=== PATIENT | male | born 1935 | race Caucasian/White ===

== ENCOUNTER 2018-06-15 13:26 | Emergency (ER) | payer MEDICARE ==
[2018-06-15] MEDS ORDERED: predniSONE 20 MG TAB ONE (15:26)
[2018-06-15 15:31] LABS: #Basophils 0.1 thou/uL (0.0-0.2); #Eosinphils 0.2 thou/uL (0.0-0.7); #Lymphocytes 2.1 thou/uL (1.20-3.40); #Monocytes 0.7 thou/uL (0.11-0.59); #Neutrophils 8.9 thou/uL (1.40-6.50); %Basophils 0.6 % (0.0-1.0); %Eosinophils 1.7 % (0.0-10.0); %Lymphocytes 17.2 % (21.0-51.0); %Neutrophils 74.5 % (42.0-75.0); Hemoglobin 13.8 g/dL (14.0-18.0); Mean Corpuscular HGB CONC 32.2 g/dL (32.0-36.0); Mean Corpuscular Hemoglobin 31.2 pg (27.0-31.0); Mean Corpuscular Volume 96.9 fL (78.0-98.0); Mean Platelet Volume 7.3 fL (7.4-10.4); Platelet Count 307 thou/uL (130-400); RBC Distribution Width 11.7 % (11.5-14.5); Red Blood Cell (RBC) Count 4.42 mill/uL (4.70-6.10)
[2018-06-15 15:38] LABS: INR-International Normal Ratio 2.2; PTT 36.6 SEC (22.9-36.1); Prothrombin Time 24.8 SEC (12.0-14.7)
[2018-06-15 15:47] LABS: ALT (SGPT) 16 U/L (8-55); AST (SGOT) 18 U/L (5-34); Albumin 4.5 g/dL (3.4-4.8); Alkaline Phosphatase 72 U/L (40-150); Anion Gap 13 mmol/L (10-20); BUN (Urea Nitrogen) 20 mg/dL (8.4-25.7); Bilirubin, Total 0.7 mg/dL (0.2-1.2); Calc. Creatinine Clearance 0 mL/min (70-130); Calcium 10.5 mg/dL (7.8-10.44); Carbon Dioxide 29 mmol/L (23-31); Chloride 99 mmol/L (98-107); Estimated GFR-MDRD 69; Globulin 3.3 g/dL (2.4-3.5); Glucose 125 mg/dL (83-110); Potassium 4.7 mmol/L (3.5-5.1); Protein, Total 7.8 g/dL (5.8-8.1); Sodium 136 mmol/L (136-145)
--- NOTE | 2018-06-15 16:05 | RAD ---
RADIOGRAPH CHEST 2 VIEWS: HISTORY: 82-year-old male with cough and dyspnea. FINDINGS: There is no air space density, pulmonary edema, pleural effusion, pneumothorax, or cardiomegaly. IMPRESSION: No acute cardiopulmonary findings. [facility] POS: SKY
[2018-06-15] MEDS ORDERED: Lidocaine 1% (PF) 30 ML VIAL ONE (17:02)
== END 2018-06-15 16:30 | disposition home or self-care (01) ==
LOC: ERS 13:26
DX: J44.1 Chronic obstructive pulmonary disease with (acute) exacerbation (principal); I25.10 Atherosclerotic heart disease of native coronary artery without angina pectoris; E78.5 Hyperlipidemia, unspecified; E78.1 Pure hyperglyceridemia; I10 Essential (primary) hypertension; Z79.899 Other long term (current) drug therapy; Z79.01 Long term (current) use of anticoagulants; Z79.82 Long term (current) use of aspirin
CPT/HCPCS: 36415; 71046; 80053; 85025; 85610; 85730; J2001; J7620

== ENCOUNTER 2019-04-23 13:03 | Emergency (ER) | payer MEDICARE ==
[2019-04-23 14:06] LABS: #Basophils 0.1 thou/uL (0.0-0.2); #Eosinphils 0.3 thou/uL (0.0-0.7); #Monocytes 0.7 thou/uL (0.11-0.59); %Basophils 0.7 % (0.0-1.0); %Eosinophils 2.7 % (0.0-10.0); %Lymphocytes 29.7 % (21.0-51.0); %Monocytes 7.2 % (0.0-10.0); %Neutrophils 59.7 % (42.0-75.0); Hemoglobin 13.6 g/dL (14.0-18.0); Mean Corpuscular HGB CONC 33.7 g/dL (32.0-36.0); Mean Corpuscular Hemoglobin 31.8 pg (27.0-31.0); Mean Corpuscular Volume 94.6 fL (78.0-98.0); Mean Platelet Volume 7.5 fL (7.4-10.4); Platelet Count 278 thou/uL (130-400); RBC Distribution Width 11.5 % (11.5-14.5); Red Blood Cell (RBC) Count 4.27 mill/uL (4.70-6.10)
[2019-04-23 14:37] LABS: ALT (SGPT) 14 U/L (8-55); AST (SGOT) 19 U/L (5-34); Albumin 4.4 g/dL (3.4-4.8); Alkaline Phosphatase 80 U/L (40-110); Anion Gap 10 mmol/L (10-20); BUN (Urea Nitrogen) 19 mg/dL (8.4-25.7); Bilirubin, Total 0.6 mg/dL (0.2-1.2); Calc. Creatinine Clearance 0 mL/min (70-130); Calcium 10.3 mg/dL (7.8-10.44); Carbon Dioxide 30 mmol/L (23-31); Chloride 99 mmol/L (98-107); Estimated GFR-MDRD 65; Globulin 3.2 g/dL (2.4-3.5); Glucose 118 mg/dL (83-110); Potassium 4.3 mmol/L (3.5-5.1); Protein, Total 7.6 g/dL (5.8-8.1); Sodium 135 mmol/L (136-145)
[2019-04-23 15:04] LABS: Bacteria/HPF None Seen HPF (None Seen); Bilirubin Negative (Negative); Blood, Urine 3+ (Negative); Clarity Hazy (Clear); Glucose, Urine (Dipstick) Normal (Negative); Leukocyte 500 Leu/uL (Negative); Nitrite Negative (Negative); Protein, Urine (Dipstick) 50 mg/dL (Neg-Trace); RBC/HPF Greater than 50 HPF (0-3); Squamous Epithelial None Seen HPF (0-3); Urobilinogen Normal mg/dL (Less than 2); WBC/HPF 0-3 HPF (0-3)
[2019-04-23 15:13] LABS: INR-International Normal Ratio 2.3; PTT 37.1 SEC (22.9-36.1)
--- NOTE | 2019-04-23 17:54 | CT ---
Exam: Abdomen CT without contrast Pelvic CT without contrast HISTORY: Hematuria. Pain. COMPARISON: 06/25/2016 FINDINGS: Abdomen CT: Lung bases:Linear opacities in lung bases likely represent areas of scar and/or atelectasis Heart size: Upper normal heart size. No significant pericardial fluid. Aorta: Atherosclerosis of a nonaneurysmal aorta. Solid organs: Limited evaluation of the solid organs by the lack of intravenous contrast administrati on. Grossly no solid organ abnormality. Lymph nodes: No gastrohepatic, retrocrural or periportal lymphadenopathy Gallbladder: Multiple small stones are noted in the dependent portion the gallbladder. No evidence of cholecystitis. Small outpouching of the gallbladder fundus. Mesentery: No mass, lymphadenopathy, free air or free fluid Kidneys: Bilaterally no evidence of hydronephrosis or significant perinephric fat stranding. There ar e 2 separate punctate nonobstructing 2 mm calculi in the right renal pelvis. Bilateral ureters have a normal caliber. No hydroureter, periureteral fat stranding or ureterolithiasis. 2.9 cm complex cyst emanating from the upper pole the right kidney. Hyperdensity in the upper pole left kidney, likely representing a hemorrhagic or complex/proteinaceous cyst measuring 0.9 cm. There is a hypodensity terry nating from the midpole of the left kidney with attenuation coefficient of 16 Hounsfield units compatible with a 2.1 cm cyst. Alimentary canal: Limited evaluation the lack of oral contrast. There is evidence of previous surgery with small bowel anastomosis. There is dilatation of the level of anastomosis which is nonspecific. Definite high-grade bowel obstruction is not appreciated as there is air and fecal mater ial in the remainder of the small bowel. There is scattered fecal material in a nondistended, nondilated colon. Occasional diverticulum. No diverticulitis. Mucosal thickening of the proximal sigm oid colon is nonspecific. Nonemergent colonoscopy is recommended. Normal caliber appendix. CT PELVIS: No mass, adenopathy, free air or free fluid. Unremarkable prostate gland. Urinary bladder: No mucosal abnormality. No bladder calculi. Osseous structures: No lytic or blastic lesions Aorta: Mild focal prominence of the infrarenal abdominal aorta measuring 2.9 x 2.6 cm. IMPRESSION: 1. Nonobstructing calculi in the right renal pelvis. No evidence of obstructive uropathy 2. Anastomosis of small bowel loops in the left hemiabdomen. Findings are similar to the previous exa mination. 2. Cholelithiasis, without evidence of cholecystitis. 4. Bilateral renal cortical cysts as described above. Transcribed Date/Time: 04/23/2019 6:02 PM
--- NOTE | 2019-04-25 13:58 | EKG ---
Test Reason : Blood Pressure : / mmHG Vent. Rate : 056 BPM Atrial Rate : 056 BPM P-R Int : 148 ms QRS Dur : 130 ms QT Int : 470 ms P-R-T Axes : -02 -33 082 degrees QTc Int : 453 ms Sinus bradycardia Left axis deviation Right bundle branch block Lateral infarct , age undetermined Inferior infarct , age undetermined Abnormal ECG No change from 06/26/2016 Confirmed by PAULA MADISON DO ([id number]), copy editor JESSICA CAGE ([id number] on 04/25/2019 1:58:06 PM Referred By: Confirmed By:PAULA MADISON DO
== END 2019-04-23 18:54 | disposition home or self-care (01) ==
LOC: ERS 13:03
DX: N30.01 Acute cystitis with hematuria (principal); I25.10 Atherosclerotic heart disease of native coronary artery without angina pectoris; I25.2 Old myocardial infarction; E11.9 Type 2 diabetes mellitus without complications; E78.2 Mixed hyperlipidemia; I10 Essential (primary) hypertension; J44.9 Chronic obstructive pulmonary disease, unspecified; Z87.891 Personal history of nicotine dependence; Z79.899 Other long term (current) drug therapy; Z79.82 Long term (current) use of aspirin; Z86.711 Personal history of pulmonary embolism; Z79.01 Long term (current) use of anticoagulants; Z79.51 Long term (current) use of inhaled steroids
CPT/HCPCS: 36415; 74176; 80053; 81003; 81015; 85025; 85610; 85730; 87077; 87086; 87186; 93005

== ENCOUNTER 2019-04-25 16:55 | Emergency (ER) | payer MEDICARE ==
[2019-04-25 18:00] LABS: #Eosinphils 0.3 thou/uL (0.0-0.7); #Lymphocytes 2.6 thou/uL (1.20-3.40); #Monocytes 0.8 thou/uL (0.11-0.59); #Neutrophils 5.7 thou/uL (1.40-6.50); %Basophils 0.5 % (0.0-1.0); %Eosinophils 2.8 % (0.0-10.0); %Lymphocytes 27.3 % (21.0-51.0); %Monocytes 8.7 % (0.0-10.0); %Neutrophils 60.8 % (42.0-75.0); Hemoglobin 13.4 g/dL (14.0-18.0); Mean Corpuscular HGB CONC 33.1 g/dL (32.0-36.0); Mean Corpuscular Hemoglobin 30.9 pg (27.0-31.0); Mean Corpuscular Volume 93.4 fL (78.0-98.0); Platelet Count 281 thou/uL (130-400); RBC Distribution Width 11.6 % (11.5-14.5); Red Blood Cell (RBC) Count 4.33 mill/uL (4.70-6.10); White Blood Cell (WBC) Count 9.4 thou/uL (4.8-10.8)
[2019-04-25 18:15] LABS: Bacteria/HPF None Seen HPF (None Seen); Bilirubin Negative (Negative); Blood, Urine Negative (Negative); Clarity Clear (Clear); Glucose, Urine (Dipstick) Normal (Negative); Leukocyte 75 Leu/uL (Negative); Nitrite Negative (Negative); Protein, Urine (Dipstick) 50 mg/dL (Neg-Trace); Squamous Epithelial 0-3 HPF (0-3); Urobilinogen Normal mg/dL (Less than 2)
[2019-04-25 18:24] LABS: ALT (SGPT) 12 U/L (8-55); AST (SGOT) 18 U/L (5-34); Albumin 4.3 g/dL (3.4-4.8); Alkaline Phosphatase 78 U/L (40-110); Anion Gap 15 mmol/L (10-20); BUN (Urea Nitrogen) 24 mg/dL (8.4-25.7); Bilirubin, Total 0.5 mg/dL (0.2-1.2); Calc. Creatinine Clearance 0 mL/min (70-130); Carbon Dioxide 28 mmol/L (23-31); Chloride 100 mmol/L (98-107); Estimated GFR-MDRD 65; Globulin 3.8 g/dL (2.4-3.5); Glucose 102 mg/dL (83-110); Lipase 64 U/L (8-78); Potassium 4.1 mmol/L (3.5-5.1); Protein, Total 8.1 g/dL (5.8-8.1); Sodium 139 mmol/L (136-145)
--- NOTE | 2019-04-25 18:26 | ULT ---
ULTRASOUND RETROPERITONEUM COMPLETE: (RENAL) DATE: 04/25/2019 HISTORY: Hematuria and flank pain FINDINGS: The right kidney measures 12.5 x 5.5 x 5.5 cm. The left kidney measures 12.5 x 5.5 x 5 cm. Both kidneys have normal parenchymal echogenicity. There is no hydronephrosis. Round 3 cm exophytic cyst protruding from upper pole cortex of right kidney. Left kidney partially obscured by shadowing from bowel gas. Cursory images of the urinary bladder demonstrate no gross abnormality. IMPRESSION: 1) 3 cm exophytic right renal upper pole cyst. 2) The other left renal lesions demonstrated on CT 2 days ago, are not visualized on this ultrasound. 3) no hydronephrosis
== END 2019-04-25 18:50 | disposition home or self-care (01) ==
LOC: ERS 16:55
DX: N20.0 Calculus of kidney (principal); I25.2 Old myocardial infarction; E11.9 Type 2 diabetes mellitus without complications; I10 Essential (primary) hypertension; I25.10 Atherosclerotic heart disease of native coronary artery without angina pectoris; E78.5 Hyperlipidemia, unspecified; J44.9 Chronic obstructive pulmonary disease, unspecified; Z86.711 Personal history of pulmonary embolism; Z87.891 Personal history of nicotine dependence; Z79.899 Other long term (current) drug therapy; Z79.01 Long term (current) use of anticoagulants; Z79.82 Long term (current) use of aspirin
CPT/HCPCS: 36415; 76770; 80053; 81003; 81015; 83690; 85025

== ENCOUNTER 2023-03-05 00:59 | Observation (INO) | payer MEDICARE ==
[2023-03-05 01:45] LABS: #Basophils 0.1 thou/uL (0.0-0.2); #Eosinphils 0.3 thou/uL (0.0-0.7); #Monocytes 0.9 thou/uL (0.11-0.59); #Neutrophils 5.9 thou/uL (1.40-6.50); %Basophils 0.5 % (0.0-1.0); %Eosinophils 2.9 % (0.0-10.0); %Lymphocytes 27.6 % (21.0-51.0); %Monocytes 8.7 % (0.0-10.0); %Neutrophils 59.9 % (42.0-75.0); Hematocrit 36.6 % (42.0-52.0); Mean Corpuscular HGB CONC 32.8 g/dL (32.0-36.0); Mean Corpuscular Hemoglobin 32.2 pg (27.0-31.0); Mean Corpuscular Volume 98.1 fl (78.0-98.0); Mean Platelet Volume 10.6 fL (7.4-10.4); Platelet Count 265 10x3/uL (130-400); RBC Distribution Width 12.4 % (11.5-14.5); Red Blood Cell (RBC) Count 3.73 mill/uL (4.70-6.10); White Blood Cell (WBC) Count 9.8 10x3/uL (4.8-10.8)
[2023-03-05 01:59] LABS: INR-International Normal Ratio 1.4; PTT 32.1 sec (22.9-36.1); Prothrombin Time 17.8 sec (12.0-14.7)
[2023-03-05 02:12] LABS: Troponin I 0.021 ng/mL (< 0.028)
[2023-03-05 02:17] LABS: ALT (SGPT) 14 U/L (8-55); AST (SGOT) 17 U/L (5-34); Albumin 4.1 g/dL (3.4-4.8); Alkaline Phosphatase 88 U/L (40-110); Anion Gap 15 mmol/L (10-20); BUN (Urea Nitrogen) 21 mg/dL (8.4-25.7); Bilirubin, Total 0.6 mg/dL (0.2-1.2); Calc. Creatinine Clearance 0 mL/min (70-130); Calcium 10.3 mg/dL (7.8-10.44); Carbon Dioxide 27 mmol/L (23-31); Chloride 103 mmol/L (98-107); Estimated GFR 63; Globulin 3.1 g/dL (2.4-3.5); Glucose 104 mg/dL (83-110); Potassium 3.8 mmol/L (3.5-5.1); Protein, Total 7.2 g/dL (5.8-8.1); Sodium 141 mmol/L (136-145)
[2023-03-05] MEDS ORDERED: Ondansetron ODT 4 MG TAB SL PRN (02:45)
[2023-03-05] MEDS ORDERED: Acetaminophen 325 MG TAB PO PRN ×2 (02:45→02:56)
[2023-03-05] MEDS ORDERED: Ondansetron PF 4 MG/2 ML Vial IVP PRN ×2 (02:45→02:56)
[2023-03-05] MEDS ORDERED: Nitroglycerin 0.4 MG TAB (25 Tab Bottle) SL PRN (02:58)
[2023-03-05] MEDS ORDERED: Aspirin 81 mg Enteric Coated Tablet PO SCH ×2 (03:00→09:00)
[2023-03-05 04:26] VITALS: BMI 24.4
[2023-03-05 04:27] LABS: #Basophils 0.1 thou/uL (0.0-0.2); #Eosinphils 0.2 thou/uL (0.0-0.7); #Monocytes 0.8 thou/uL (0.11-0.59); #Neutrophils 6.8 thou/uL (1.40-6.50); %Basophils 0.7 % (0.0-1.0); %Eosinophils 2.2 % (0.0-10.0); %Lymphocytes 23.1 % (21.0-51.0); %Monocytes 7.7 % (0.0-10.0); %Neutrophils 65.9 % (42.0-75.0); Hematocrit 35.3 % (42.0-52.0); Hemoglobin 11.4 g/dL (14.0-18.0); Mean Corpuscular HGB CONC 32.3 g/dL (32.0-36.0); Mean Corpuscular Hemoglobin 31.9 pg (27.0-31.0); Mean Corpuscular Volume 98.9 fl (78.0-98.0); Mean Platelet Volume 10.6 fL (7.4-10.4); Platelet Count 245 10x3/uL (130-400); RBC Distribution Width 12.4 % (11.5-14.5); Red Blood Cell (RBC) Count 3.57 mill/uL (4.70-6.10); White Blood Cell (WBC) Count 10.4 10x3/uL (4.8-10.8)
[2023-03-05 04:52] LABS: Anion Gap 14 mmol/L (10-20); BUN (Urea Nitrogen) 19 mg/dL (8.4-25.7); Calc. Creatinine Clearance 51 mL/min (70-130); Calcium 9.7 mg/dL (7.8-10.44); Carbon Dioxide 24 mmol/L (23-31); Chloride 104 mmol/L (98-107); Estimated GFR 72; Glucose 97 mg/dL (83-110); Potassium 4.8 mmol/L (3.5-5.1); Sodium 137 mmol/L (136-145)
[2023-03-05 04:57] LABS: Troponin I 0.019 ng/mL (< 0.028)
[2023-03-05] MEDS ORDERED: Famotidine 20 MG TAB PO SCH (09:00)
[2023-03-05 09:17] LABS: Troponin I 0.022 ng/mL (< 0.028)
[2023-03-05 16:29] VITALS: BP 149/67; TEMP 97.6
[2023-03-08] MEDS ORDERED: FLU VACC QS2023(65UP)/MF59C/PF 60 MCG/0.5 ML SYRINGE IM ONE (09:00)
== END 2023-03-05 18:48 | disposition home or self-care (01) ==
LOC: ERS 00:59 → 2NO 02:29
PROVIDERS: ADMIT Student in an Organized Health Care Education/Training Program; ATTEND Emergency Medicine
DX: R00.1 Bradycardia, unspecified (principal); I50.20 Unspecified systolic (congestive) heart failure; I08.1 Rheumatic disorders of both mitral and tricuspid valves; I11.0 Hypertensive heart disease with heart failure; F03.90 Unspecified dementia, unspecified severity, without behavioral disturbance, psychotic disturbance, mood disturbance, and anxiety; J44.9 Chronic obstructive pulmonary disease, unspecified; I45.10 Unspecified right bundle-branch block; E11.9 Type 2 diabetes mellitus without complications; I73.9 Peripheral vascular disease, unspecified; I25.10 Atherosclerotic heart disease of native coronary artery without angina pectoris; I10 Essential (primary) hypertension; E78.5 Hyperlipidemia, unspecified; Z86.711 Personal history of pulmonary embolism; D68.51 Activated protein C resistance; Z79.84 Long term (current) use of oral hypoglycemic drugs; Z79.82 Long term (current) use of aspirin; Z79.899 Other long term (current) drug therapy; Z79.01 Long term (current) use of anticoagulants
CPT/HCPCS: 71045; 71275; 80048; 80053; 83880; 84484 ×2; 85025 ×2; 85610; 85730; 93005; G0378 ×2; 36415